=== PATIENT | male | born 1975 | race Caucasian/White ===

== ENCOUNTER 2017-01-10 18:12 | Emergency (ER) | payer MEDICARE, OTHER ==
[~2017-01-10] VITALS: Ht 172.7 cm; Wt 79.5 kg
[~2017-01-10 18:12] MED LIST: BENZ1TAB70 PO; CHOL100030 PO; DIPH50 PO; DIVA500T52 PO; DOCU-174 PO; FISH1 PO; LIDE515C TP; OLAN10TA3 PO; OLAN20TA2 PO; TRIL8 PO
[2017-01-10] MEDS ORDERED: CLOZ100 PO (18:34)
[2017-01-10 19:18] VITALS: BP 129/81
== END 2017-01-10 19:24 | disposition home or self-care (01) ==
LOC: EMS 18:16
DX: K04.7 Periapical abscess without sinus (principal); K02.9 Dental caries, unspecified; F17.210 Nicotine dependence, cigarettes, uncomplicated; F20.9 Schizophrenia, unspecified
CPT/HCPCS: 99283